=== PATIENT | male | born 1985 | race American Indian/Alaskan Native ===

== ENCOUNTER 2017-08-13 06:56 | Emergency (ER) | payer BC ==
--- NOTE | 2017-08-13 07:41 | EDM.PDOC ---
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, did not work last night no alc, no cigs, no THC, no street drugs at pork chop from crock pot at 6p last night, did eat during night, had soft BM this AM without change in pain no change with change in position no n/v no prior abd surgery otherwise feels fine did have bili 1.7 and AST 35 and ALT 33 three yr ago abdominal Pain Score (Numeric/FACES): 8 - Related Data Allergies Allergy/AdvReac Type Severity Reaction Status Date / Time No Known Allergies Allergy Verified 08/13/17 07:09 Home Meds: Home Meds NK [No Known Home Meds] 12/03/16 [History] Past Medical History - Past Health History Medical/Surgical History: Denies Medical/Surgical History Social & Family History - Family History Family Medical History: Noncontributory - Tobacco Use Smoking Status *Q: Never Smoker - Caffeine Use Caffeine Use: Reports: None - Alcohol Use Days Per Week of Alcohol Use: 0 - Recreational Drug Use Recreational Drug Use: No ED ROS GENERAL - Review of Systems Review Of Systems: See Below Constitutional: Reports: No Symptoms HEENT: Reports: No Symptoms Respiratory: Reports: No Symptoms Cardiovascular: Reports: No Symptoms Endocrine: Reports: No Symptoms GI/Abdominal: Reports: Abdominal Pain. Denies: Constipation, Diarrhea, Nausea, Vomiting : Reports: No Symptoms Musculoskeletal: Reports: No Symptoms Skin: Reports: No Symptoms Neurological: Reports: No Symptoms Psychiatric: Reports: No Symptoms Hematologic/Lymphatic: Reports: No Symptoms Immunologic: Reports: No Symptoms ED EXAM, GI/ABD - Physical Exam Exam: See Below Exam Limited By: No Limitations General Appearance: Alert, WD/WN, No Apparent Distress Nose: Normal Inspection Throat/Mouth: Normal Inspection, Normal Oropharynx, Normal Voice, No Airway Compromise Head: Atraumatic, Normocephalic Neck: Normal Inspection, Supple, Non-Tender, Full Range of Motion Respiratory/Chest: No Respiratory Distress, Lungs Clear, Normal Breath Sounds, No Accessory Muscle Use Cardiovascular: Regular Rate, Rhythm, No Edema, No Murmur, No Rub GI/Abdominal Exam: Normal Bowel Sounds, Soft, Non-Tender, Other (soft, mild distention, no localized tender, NT at Garcia's point with deep breath, NT at epigastrium, nl BS x 4) Back Exam: Normal Inspection, Full Range of Motion, NT Extremities: Normal Inspection, Normal Range of Motion, Non-Tender, No Pedal Edema Neurological: Alert, Oriented, CN II-XII Intact, Normal Cognition, No Motor/ Sensory Deficits Psychiatric: Normal Affect, Normal Mood Skin Exam: Warm, Dry, Intact, Normal Color, No Rash Lymphatic: No Adenopathy Course - Vital Signs Last Recorded V/S: Last Vital Signs Temp 36.4 C 08/13/17 07:03 Pulse 46 L 08/13/17 07:03 Resp 16 08/13/17 07:03 BP 129/72 08/13/17 07:03 Pulse Ox 100 08/13/17 07:03 - Orders/Labs/Meds Orders: Active Orders 24 hr Category Date Time Status Abdomen 2V AP Flat Upright [CR] Stat Exams 08/13/17 07:35 Taken LIPASE [REF] Stat Lab 08/13/17 07:49 Received TROPONIN I [CHEM] Stat Lab 08/13/17 07:49 Received EKG 12 Lead [EK] Routine Ther 08/13/17 07:34 Ordered Labs: Laboratory Tests 08/13/17 08/13/17 08/13/17 Range/Units 07:49 07:49 08:26 WBC 7.7 (4.5-12.0) X10-3/uL RBC 5.17 (4.30-5.75) x10(6)uL Hgb 15.0 (11.5-15.5) g/dL Hct 43.4 (30.0-51.3) % MCV 83.9 (80-96) fL MCH 28.9 (27.7-33.6) pg MCHC 34.5 (32.2-35.4) g/dL RDW 13.0 (11.5-15.5) % Plt Count 267 (125-369) X10(3)uL MPV 7.7 (7.4-10.4) fL Neut % (Auto) 61.9 (46-82) % Lymph % (Auto) 28.2 (13-37) % [place] % (Auto) 7.8 (4-12) % Eos % (Auto) 2 (1.0-5.0) % Baso % (Auto) 0 (0-2) % Neut # (Auto) 4.8 (1.6-8.3) # Lymph # (Auto) 2.2 (0.6-5.0) # [place] # (Auto) 0.6 (0.0-1.3) # Eos # (Auto) 0.1 (0.0-0.8) # Baso # (Auto) 0.0 (0.0-0.2) # Sodium 135 (135-145) mmol/L Potassium 3.8 (3.5-5.3) mmol/L Chloride 101 (100-110) mmol/L Carbon Dioxide 25 (23-29) mmol/L BUN 19 (5-20) mg/dL Creatinine 1.4 H (0.6-1.3) mg/dL Est Cr Clr Drug Dosing TNP Estimated GFR (MDRD) 59 L (>60) BUN/Creatinine Ratio 13.6 (9-20) Glucose 113 (80-116) mg/dL Calcium 8.8 (8.6-10.2) mg/dL Total Bilirubin 0.7 (0.1-1.3) mg/dL AST 27 D (5-27) IU/L ALT 41 H D (14-26) IU/L Alkaline Phosphatase 63 (56-112) IU/L C-Reactive Protein 1.2 H (0.0-1.0) mg/dL Total Protein 7.6 (6.0-8.0) g/dL Albumin 4.4 (3.5-5.2) g/dL Globulin 3.2 g/dL Albumin/Globulin Ratio 1.4 Amylase 68 (28-100) U/L Urine Color Yellow (YELLOW) Urine Appearance Clear (CLEAR) Urine pH 6.0 (5.0-6.5) Ur Specific [place] 1.020 (1.010-1.025) Urine Protein Negative (NEGATIVE) mg/dL Urine Glucose (UA) Normal (NEGATIVE) mg/dL Urine Ketones Negative (NEGATIVE) mg/dL Urine Occult Blood Negative (NEGATIVE) Urine Nitrite Negative (NEGATIVE) Urine Bilirubin Negative (NEGATIVE) Urine Urobilinogen Normal (NEGATIVE) mg/dL Ur Leukocyte Esterase Negative (NEGATIVE) Urine RBC Not seen (0) Urine WBC 0-5 (0) Ur Squamous Epith Cells Few H (NS,R,O) Urine Bacteria Few H (NS) Urine Mucus Few H (NS) Meds: Medications Discontinued Medications Generic Name Dose Route Start Last Admin Trade Name Wendie PRN Reason Stop Dose Admin Ketorolac Tromethamine 60 mg 08/13/17 08:36 08/13/17 08:44 Toradol IM 08/13/17 08:37 60 mg ONETIME ONE Administration - Re-Assessments/Exams Free Text/Narrative Re-Assessment/Exam: 08/13/17 09:39 pt sleeping after Toradol, some discomfort but better, w/u neg except for plug of stool in R colon, has mild increase BUN/creat c/w dehydration, pt will check with boss in getting someone else to cover work for him Departure - Departure Time of Disposition: 09:40 Disposition: Home, Self-Care 01 Condition: Good Clinical Impression: Constipation, Dehydration, Colon spasm - Discharge Information Referrals: Omari Orosco MD [Primary Care Provider] - Forms: ED Department Discharge Additional Instructions: Increase fluids. No work today. Drink a 10-ounce bottle of magnesium citrate when you get home and a second one in 6 hours. See your doctor tomorrow. Return to ED if you have new symptoms or feel worse. Call your Physician or Return to Emergency Department if: * Your condition worsens in any way. * You develop fever greater than 100.4. * You have vomitting that does not stop with medications. * You have pain that is not controlled with medications. - My Orders Last 24 Hours: My Active Orders 08/13/17 07:34 EKG 12 Lead [EK] Routine 08/13/17 07:35 Abdomen 2V AP Flat Upright [CR] Stat 08/13/17 07:49 LIPASE [REF] Stat TROPONIN I [CHEM] Stat - Assessment/Plan Last 24 Hours: My Active Orders 08/13/17 07:34 EKG 12 Lead [EK] Routine 08/13/17 07:35 Abdomen 2V AP Flat Upright [CR] Stat 08/13/17 07:49 LIPASE [REF] Stat TROPONIN I [CHEM] Stat
[2017-08-13] MEDS ORDERED: Ketorolac 60 MG/2 ML SDV IM ONE (08:36)
[2017-08-13 11:53] VITALS: BP 115/57
--- NOTE | 2017-08-13 11:55 | CR ---
INDICATION: Abdominal pain above umbilicus, question constipation. ABDOMEN WITH CHEST: CHEST: PA view of the chest revealed poor inspiration emphasizing the heart. A minimal dextroconvex scoliosis upper middle thoracic spine is suggested. An active infiltrate or effusion was not identified, but emphasized markings are present due to the poor inspiration. No free air is noted under the hemidiaphragm leaves. IMPRESSION: No definite acute process - suggest a full inspiration PA and lateral examination of the chest when clinically possible, depending upon clinical necessity. ABDOMEN: Five images of the abdomen in supine and upright projections revealed a nonspecific pattern of gas and feces with a normal amount of stool in the bowel. A mass in the pelvis is compatible with distended urinary bladder. Otherwise, no mass is identified - no definite organomegaly is seen - no pathologic calcifications were identified. No evidence of free air was seen. Bony structures appear to be grossly intact. IMPRESSION: Nonspecific abdomen. No evidence of constipation identified. MTDD
== END 2017-08-13 10:23 | disposition home or self-care (01) ==
LOC: FB.ED 06:56
DX: E86.0 Dehydration (principal); K58.9 Irritable bowel syndrome, unspecified; K59.00 Constipation, unspecified
CPT/HCPCS: 36415; 74022; 80053; 81001; 82150; 83690; 84484; 85025; 86140; 93005; 96372; 99284; J1885

== ENCOUNTER 2017-12-07 00:01 | Emergency (ER) | payer BC ==
[2017-12-07 00:51] VITALS: BP 125/86
--- NOTE | 2017-12-07 03:05 | ER ---
DATE SEEN: 12/07/2017 CHIEF COMPLAINT: Sore throat. HISTORY OF PRESENT ILLNESS: This is a 31-year-old male with pain on swallowing. This started today, [id number] intensity. REVIEW OF SYSTEMS: Also complains of right knee pain and instability. No trauma. He denies fever or chills. No cough. ALLERGIES: No known allergies. PHYSICAL EXAMINATION: GENERAL: Not in distress. VITAL SIGNS: Blood pressure and temperature normal. EARS, NOSE, and THROAT: Positive for hyperemia and inflammation of the oropharynx, but no exudates. NECK: Supple with no lymphadenopathy. CARDIOVASCULAR: Normal. EXTREMITIES: Gait and station are normal. IMPRESSION: 1. Pharyngitis, viral. 2. Knee pain. PLAN: NSAIDs, fluids and follow up in the office in 1 to 2 days. TIME SEEN: 0030 hours. /[id number] MISSY/DOC
== END 2017-12-07 00:40 | disposition home or self-care (01) ==
LOC: FB.ED 00:01
DX: J02.9 Acute pharyngitis, unspecified (principal); M25.561 Pain in right knee
CPT/HCPCS: 99282

== ENCOUNTER 2018-12-29 15:22 | Emergency (ER) | payer BC ==
[2018-12-29] MEDS ORDERED: Sodium Chloride 0.9% 1,000 ML IV ONE (16:53)
--- NOTE | 2018-12-29 16:57 | EDM.PDOC ---
ED HPI GENERAL MEDICAL PROBLEM - General Stated Complaint: DIARHEA Time Seen by Provider: 12/29/18 15:22 Source of Information: Reports: Patient, Family History Limitations: Reports: Other (abd. pain) - History of Present Illness INITIAL COMMENTS - FREE TEXT/NARRATIVE: 33 y.o. male came to the ED due to many BMs, always small amounts, each time formed stools and generalized abd. pain for 2 days. There was no blood in stool. No N/V no trauma or any other acute medical issues. BP 112/47 RR 18 Pulse 87 Pulse ox 98% on RA Temp 36.8 Onset Date: 12/26/18 Onset Time: 07:00 Duration: Day(s):, Constant, Intermittent Location: Reports: Abdomen Quality: Reports: Dull, Throbbing Severity: Moderate Improves with: Reports: Other (nothing) Worsens with: Reports: Other (nothing) Context: Reports: Other Associated Symptoms: Reports: Other Abdomen Pain Score (Numeric/FACES): 3 - Related Data Allergies Allergy/AdvReac Type Severity Reaction Status Date / Time No Known Allergies Allergy Verified 12/29/18 19:35 Home Meds: Home Meds NK [No Known Home Meds] 12/03/16 [History] Past Medical History - Past Health History Medical/Surgical History: Denies Medical/Surgical History HEENT History: Reports: Impaired Vision - Past Surgical History Other HEENT Surgeries/Procedures: wisdom tooth removed Social & Family History - Family History Family Medical History: Noncontributory - Caffeine Use Caffeine Use: Reports: Coffee, Soda ED ROS GENERAL - Review of Systems Review Of Systems: See Below Constitutional: Reports: No Symptoms HEENT: Reports: No Symptoms Respiratory: Reports: No Symptoms Cardiovascular: Reports: No Symptoms Endocrine: Reports: No Symptoms GI/Abdominal: Reports: Abdominal Pain, Diarrhea : Reports: No Symptoms Musculoskeletal: Reports: No Symptoms Skin: Reports: Pallor Neurological: Reports: No Symptoms Psychiatric: Reports: No Symptoms Hematologic/Lymphatic: Reports: No Symptoms Immunologic: Reports: No Symptoms ED EXAM, GI/ABD - Physical Exam Exam: See Below Exam Limited By: Other (abd. pain) General Appearance: Alert, WD/WN, Moderate Distress, Obese Eyes: Bilateral: Normal Appearance Ears: Normal External Exam, Normal Canal Nose: Normal Inspection, Normal Mucosa Throat/Mouth: Normal Inspection, Normal Lips, Normal Voice, No Airway Compromise , Other (dry mucosal mmebrane) Head: Atraumatic, Normocephalic Neck: Normal Inspection, Supple, Non-Tender, Full Range of Motion Respiratory/Chest: No Respiratory Distress, Lungs Clear, Normal Breath Sounds, No Accessory Muscle Use, Chest Non-Tender Cardiovascular: Normal Peripheral Pulses, Regular Rate, Rhythm, No Edema, No Gallop, No JVD, No Murmur GI/Abdominal Exam: Normal Bowel Sounds, Soft, Non-Tender, No Organomegaly, No Distention, No Abnormal Bruit, No Mass, Pelvis Stable (Male) Exam: No Hernia Rectal (Males) Exam: Deferred Back Exam: Normal Inspection, Full Range of Motion Extremities: Normal Inspection Neurological: Alert, Oriented, CN II-XII Intact, Normal Cognition, Normal Gait Psychiatric: Normal Affect, Normal Mood Skin Exam: Warm, Dry, Intact, Pallor Lymphatic: No Adenopathy Course - Vital Signs Text/Narrative:: 33 y.o. male came to the ED due to many BMs, always small amounts, each time formed stools and generalized abd. pain for 2 days. There was no blood in stool. No N/V no trauma or any other acute medical issues. BP 112/47 RR 18 Pulse 87 Pulse ox 98% on RA Temp 36.8 PE: WNWD male with frequent BMs and gen abd. pain Labs: Pending Imaging: Pending Impression: Gen. Abd. pain, frequent BMs Pt was signed out to Dr. Argueta at 7 pm due to shift changes pending labs and imaging studies. Last Recorded V/S: Last Vital Signs Temp 36.7 C 12/29/18 19:55 Pulse 70 12/29/18 19:55 Resp 18 12/29/18 19:55 BP 114/52 L 12/29/18 19:55 Pulse Ox 98 12/29/18 19:55 - Orders/Labs/Meds Orders: Active Orders 24 hr Category Date Time Status Abdomen Pelvis w Cont [CT] Stat Exams 12/29/18 16:58 Taken STOOL CULTURE Routine Lab 12/29/18 17:25 Received WHITE BLOOD CELLS (WBC), STOOL Urgent Lab 12/29/18 17:25 Received Labs: Laboratory Tests 12/29/18 12/29/18 12/29/18 Range/Units 16:20 16:20 18:30 WBC 9.2 (4.5-12.0) X10-3/uL RBC 5.54 (4.30-5.75) x10(6)uL Hgb 15.8 H (11.5-15.5) g/dL Hct 47.7 (30.0-51.3) % MCV 86.0 (80-96) fL MCH 28.6 (27.7-33.6) pg MCHC 33.2 (32.2-35.4) g/dL RDW 13.4 (11.5-15.5) % Plt Count 286 (125-369) X10(3)uL MPV 7.9 (7.4-10.4) fL Neut % (Auto) 76.0 (46-82) % Lymph % (Auto) 18.4 (13-37) % [place] % (Auto) 4.4 (4-12) % Eos % (Auto) 1 (1.0-5.0) % Baso % (Auto) 1 (0-2) % Neut # (Auto) 6.9 (1.6-8.3) # Lymph # (Auto) 1.7 (0.6-5.0) # [place] # (Auto) 0.4 (0.0-1.3) # Eos # (Auto) 0.1 (0.0-0.8) # Baso # (Auto) 0.1 (0.0-0.2) # Total Bilirubin 0.9 (0.1-1.3) mg/dL Direct Bilirubin 0.13 (0.10-0.20) mg/dL AST 26 H (5-25) IU/L ALT 56 H (12-36) U/L Alkaline Phosphatase 81 (56-112) IU/L Total Protein 8.3 H (6.0-8.0) g/dL Albumin 4.1 (3.5-5.2) g/dL Amylase 54 (25-115) U/L Urine Color Yellow (YELLOW) Urine Appearance Clear (CLEAR) Urine pH 5.0 (5.0-6.5) Ur Specific [place] 1.025 (1.010-1.025) Urine Protein Trace (NEGATIVE) mg/dL Urine Glucose (UA) Normal (NEGATIVE) mg/dL Urine Ketones Negative (NEGATIVE) mg/dL Urine Occult Blood Negative (NEGATIVE) Urine Nitrite Negative (NEGATIVE) Urine Bilirubin Negative (NEGATIVE) Urine Urobilinogen Normal (NEGATIVE) mg/dL Ur Leukocyte Esterase Negative (NEGATIVE) Urine RBC 0-5 (0) Urine WBC 0-5 (0) Ur Squamous Epith Cells Occasional (NS,R,O) Urine Bacteria Rare H (NS) Meds: Medications Discontinued Medications Generic Name Dose Route Start Last Admin Trade Name Freq PRN Reason Stop Dose Admin Diatrizoate Meglum/Diatrizoate Sod 30 ml 12/29/18 18:15 12/29/18 19:09 Gastrografin 37% PO 30 ml . DIRECTED RACHELE Administration Sodium Chloride 1,000 mls @ 999 mls/hr 12/29/18 16:53 12/29/18 16:50 Normal Saline IV 12/29/18 17:53 999 mls/hr .BOLUS ONE Administration Iopamidol 124 ml 12/29/18 18:11 12/29/18 19:10 Isovue-370 (76%) IV 12/29/18 18:12 124 ml ONETIME ONE Administration Departure - Departure Time of Disposition: 20:00 Disposition: Home, Self-Care 01 Condition: Good Clinical Impression: Colitis - Discharge Information Instructions: Viral Gastroenteritis, Adult Referrals: Omari Orosco MD [Primary Care Provider] - (PRN) Forms: ED Department Discharge - My Orders Last 24 Hours: My Active Orders 12/29/18 16:58 Abdomen Pelvis w Cont [CT] Stat 12/29/18 17:25 STOOL CULTURE Routine WHITE BLOOD CELLS (WBC), STOOL Urgent - Assessment/Plan Last 24 Hours: My Active Orders 12/29/18 16:58 Abdomen Pelvis w Cont [CT] Stat 12/29/18 17:25 STOOL CULTURE Routine WHITE BLOOD CELLS (WBC), STOOL Urgent
[2018-12-29] MEDS ORDERED: Iopamidol 755 MG/ML 150 ML Bottle IV ONE (18:11)
[2018-12-29] MEDS ORDERED: Diatrizoate Meglumine/Diatrizoate Sodium 37% 30 ML Bottle PO SCH (18:15)
[2018-12-29 20:05] VITALS: BP 114/52
--- NOTE | 2018-12-30 02:51 | ER ---
DATE SEEN: 12/29/2018 REASON FOR VISIT: Diarrhea. HISTORY OF PRESENT ILLNESS: This is a 33-year-old who was seen by Dr. Cao because of abdominal discomfort and diarrhea for 2 days. No fever, chills, or vomiting. MEDICATIONS: None. PHYSICAL EXAMINATION: GENERAL: Well hydrated. VITAL SIGNS: Blood pressure is normal. Pulse is 66 and temperature 97.3. ABDOMEN: Soft and benign on my exam after he got fluids. LABORATORY DATA: Labs revealed a white cell count of 9.2, normal electrolytes, and urine was clear. IMAGING STUDIES: CT was suggestive of colitis. IMPRESSION: 1. Acute gastroenteritis. 2. Colitis. TREATMENT: Supportive therapy. Use Imodium. Return p.r.n. or with any worsening symptoms. /[id number] MISSY/DOC
== END 2018-12-29 20:00 | disposition home or self-care (01) ==
LOC: FB.ED 15:22
DX: K52.9 Noninfective gastroenteritis and colitis, unspecified (principal)
CPT/HCPCS: 36415; 74177; 80076; 81001; 82150; 85025; 87045; 87046; 87427; 89055; 96360; 96361; 99284; J7030; Q9963; Q9967